=== PATIENT | female | born 1975 | race Hispanic/Latino ===

== ENCOUNTER 2023-04-09 15:33 | Emergency (ER) | payer OTHER ==
[~2023-04-09] VITALS: Ht 157.5 cm; Wt 77.1 kg
[2023-04-09] MEDS ORDERED: MORPHINE 2 MG SYG ONE (17:06)
[2023-04-09] MEDS ORDERED: ONDANSETRON ODT 4MG TAB ONE (17:07)
[2023-04-09] MEDS ORDERED: MORPHINE 2 MG SYG IM ONE (17:30)
[2023-04-09] MEDS ORDERED: ONDANSETRON ODT 4MG TAB SL ONE (17:30)
[2023-04-09] MEDS ORDERED: MORPHINE 4 MG SYG ONE (18:06)
[2023-04-09] MEDS ORDERED: PROPOFOL 10 MG/ML 20ML VIAL IV ONE (18:09)
[2023-04-09] MEDS ORDERED: ACET-2079 PO (19:58)
[2023-04-09] MEDS ORDERED: IBUP-2077 PO (19:58)
[2023-04-09 20:37] VITALS: BP 146/79
== END 2023-04-09 20:37 | disposition home or self-care (01) ==
LOC: EDH 15:33
DX: S52.91XA Unspecified fracture of right forearm, initial encounter for closed fracture (principal); S52.691A Other fracture of lower end of right ulna, initial encounter for closed fracture; W18.39XA Other fall on same level, initial encounter; Y93.89 Activity, other specified; Y92.89 Other specified places as the place of occurrence of the external cause; Y99.8 Other external cause status
CPT/HCPCS: 25605; 99285; 73100; 96374; 96372; J2270 ×2; J2704

== ENCOUNTER 2023-05-17 16:25 | Inpatient (IN) | payer OTHER ==
[~2023-05-17] VITALS: Ht 157.5 cm; Wt 74.0 kg
[~2023-05-17 16:25] MED LIST: ACET-2079 PO; IBUP-2077 PO
[2023-05-17] MEDS ORDERED: KETOROLAC 60 MG VIAL (30MG/ML) IM ONE (17:30)
[2023-05-17] MEDS ORDERED: MORPHINE 2 MG SYG IVP ONE (19:30)
[2023-05-17] MEDS ORDERED: METOCLOPRAMIDE 10 MG/2 ML VIAL IVP ONE (19:30)
[2023-05-17] MEDS ORDERED: FAMOTIDINE 20MG VIAL IV ONE (19:30)
[2023-05-17] MEDS ORDERED: LACTATED RINGERS 1000ML 1,000 ML IV ONE (19:30)
[2023-05-17 19:58] LABS: BASOPHILS # (AUTO) 0.03 K/uL (0.00-0.20); BASOPHILS % (AUTO) 0.4 % (0.0-5.0); EOSINOPHILS # (AUTO) 0.13 K/uL (0.00-0.70); EOSINOPHILS % (AUTO) 1.8 % (0.0-8.0); HEMATOCRIT 33.2 % (36-48); IMMATURE GRANULOCYTE ABSOLUTE 0.02 K/uL (0-1); LYMPHOCYTES # (AUTO) 1.8 K/uL (1.0-4.8); LYMPHOCYTES % (AUTO) 24.8 % (21.0-51.0); MEAN CORPUSCULAR HEMOGLOBIN 27.8 pg (27.0-33.0); MEAN CORPUSCULAR HGB CONC 30.7 g/dL (32.0-36.0); MEAN CORPUSCULAR VOLUME 90.5 fL (79-99); MONOCYTES # (AUTO) 0.6 K/uL (0.1-1.0); MONOCYTES % (AUTO) 8.3 % (3.0-13.0); NEUTROPHILS # (AUTO) 4.6 K/uL (1.8-7.7); NEUTROPHILS % (AUTO) 64.4 % (40.0-77.0); PLATELET COUNT (AUTO) 236 K/uL (130-400); RED BLOOD CELL COUNT(AUTO) 3.67 MIL/uL (4.00-5.50); WHITE BLOOD COUNT (AUTO) 7.2 K/uL (4.8-10.8)
[2023-05-17 20:13] LABS: ALBUMIN 3.6 g/dL (3.5-5.0); BILIRUBIN,TOTAL 0.2 mg/dL (0.2-1.0); CREATININE 0.7 mg/dL (0.5-1.5); POTASSIUM 3.4 mmol/L (3.5-5.1); TOTAL PROTEIN, SERUM 7.4 g/dL (6.0-8.3)
[2023-05-17] MEDS ORDERED: ACETAMINOPHEN 325 MG TAB PO PRN (20:30)
[2023-05-17] MEDS ORDERED: MORPHINE 4 MG SYG IV PRN (20:30)
[2023-05-17] MEDS ORDERED: ONDANSETRON 4MG INJ IV PRN (20:30)
[2023-05-17] MEDS ORDERED: MORPHINE 2 MG SYG IV PRN (20:30)
[2023-05-17] MEDS: FAMOTIDINE 20MG VIAL IV SCH (21:00)
[2023-05-17] MEDS: LACTATED RINGERS 1000ML 1,000 ML IV SCH ×2 (21:00→22:26)
[2023-05-17 22:00] VITALS: BP 140/81; PULSE 66; RESP 19; O2SAT 96
[2023-05-18] VITALS (7 sets, daily range): BP systolic 102–135; BP diastolic 62–79; PULSE 69–81; RESP 16–20; O2SAT 98
[2023-05-18 00:06] LABS: SARS-CoV-2, RNA, NAAT NEGATIVE SARS CoV-2 (NEGATIVE)
[2023-05-18 05:06] LABS: BASOPHILS # (AUTO) 0.02 K/uL (0.00-0.20); BASOPHILS % (AUTO) 0.3 % (0.0-5.0); EOSINOPHILS # (AUTO) 0.11 K/uL (0.00-0.70); EOSINOPHILS % (AUTO) 1.9 % (0.0-8.0); HEMATOCRIT 29.1 % (36-48); IMMATURE GRANULOCYTE ABSOLUTE 0.02 K/uL (0-1); LYMPHOCYTES # (AUTO) 1.8 K/uL (1.0-4.8); LYMPHOCYTES % (AUTO) 30.8 % (21.0-51.0); MEAN CORPUSCULAR HEMOGLOBIN 28.3 pg (27.0-33.0); MEAN CORPUSCULAR VOLUME 88.4 fL (79-99); MONOCYTES # (AUTO) 0.5 K/uL (0.1-1.0); NEUTROPHILS # (AUTO) 3.4 K/uL (1.8-7.7); NEUTROPHILS % (AUTO) 58.7 % (40.0-77.0); PLATELET COUNT (AUTO) 198 K/uL (130-400); RED BLOOD CELL COUNT(AUTO) 3.29 MIL/uL (4.00-5.50); RED CELL DISTRIBUTION WIDTH 14.9 % (11.0-15.5); WHITE BLOOD COUNT (AUTO) 5.9 K/uL (4.8-10.8)
[2023-05-18 05:16] LABS: INR 0.93 (0.85-1.15); PROTHROMBIN TIME 10.5 SEC (9.6-11.6)
[2023-05-18 05:18] LABS: PARTIAL THROMBOPLASTIN TIME 29.1 SEC (26.3-35.5)
[2023-05-18 05:27] LABS: CREATININE 0.6 mg/dL (0.5-1.5); MAGNESIUM 1.8 mg/dL (1.80-2.40); PHOSPHORUS 2.9 mg/dL (2.5-4.9); POTASSIUM 3.3 mmol/L (3.5-5.1)
[2023-05-18] MEDS: FAMOTIDINE 20MG VIAL IV SCH ×2 (08:53→21:32)
[2023-05-18] MEDS ORDERED: MAGNESIUM 2GM PREMIX 50ML 50 ML IV PRN (09:00)
[2023-05-18] MEDS ORDERED: POTASSIUM CHLORIDE 20MEQ/100ML 100 ML IV PRN (09:00)
[2023-05-18] MEDS ORDERED: POTASSIUM CHLORIDE 10% ELIXIR 20 MEQ/15 ML UDCUP PO PRN (12:00)
[2023-05-18] MEDS: KCL 20 MEQ ERTAB PO PRN ×2 (12:23→18:12)
[2023-05-18] MEDS: LACTATED RINGERS 1000ML 1,000 ML IV SCH (23:41)
[2023-05-19] VITALS (9 sets, daily range): BP systolic 109–149; BP diastolic 70–95; PULSE 58–82; RESP 16–20; TEMP 98.1; O2SAT 99
[2023-05-19 05:27] LABS: BASOPHILS # (AUTO) 0.02 K/uL (0.00-0.20); BASOPHILS % (AUTO) 0.3 % (0.0-5.0); EOSINOPHILS # (AUTO) 0.12 K/uL (0.00-0.70); EOSINOPHILS % (AUTO) 1.9 % (0.0-8.0); HEMATOCRIT 32.4 % (36-48); IMMATURE GRANULOCYTE ABSOLUTE 0.02 K/uL (0-1); LYMPHOCYTES # (AUTO) 1.8 K/uL (1.0-4.8); LYMPHOCYTES % (AUTO) 28.1 % (21.0-51.0); MEAN CORPUSCULAR HEMOGLOBIN 28.1 pg (27.0-33.0); MEAN CORPUSCULAR HGB CONC 31.2 g/dL (32.0-36.0); MEAN CORPUSCULAR VOLUME 90.3 fL (79-99); MONOCYTES # (AUTO) 0.5 K/uL (0.1-1.0); MONOCYTES % (AUTO) 8.5 % (3.0-13.0); NEUTROPHILS # (AUTO) 3.9 K/uL (1.8-7.7); NEUTROPHILS % (AUTO) 60.9 % (40.0-77.0); PLATELET COUNT (AUTO) 185 K/uL (130-400); RED BLOOD CELL COUNT(AUTO) 3.59 MIL/uL (4.00-5.50); RED CELL DISTRIBUTION WIDTH 14.7 % (11.0-15.5); WHITE BLOOD COUNT (AUTO) 6.4 K/uL (4.8-10.8)
[2023-05-19 05:42] LABS: BILIRUBIN,TOTAL 0.2 mg/dL (0.2-1.0); CREATININE 0.5 mg/dL (0.5-1.5); TOTAL PROTEIN, SERUM 6.4 g/dL (6.0-8.3)
[2023-05-19] MEDS: FAMOTIDINE 20MG VIAL IV SCH ×2 (08:47→20:51)
[2023-05-19] MEDS: ACETAMINOPHEN 325 MG TAB PO PRN (20:56)
[2023-05-20] VITALS (26 sets, daily range): BP systolic 114–168; BP diastolic 64–92; PULSE 55–79; RESP 10–19; O2SAT 100
[2023-05-20 05:17] LABS: BASOPHILS # (AUTO) 0.03 K/uL (0.00-0.20); BASOPHILS % (AUTO) 0.5 % (0.0-5.0); EOSINOPHILS # (AUTO) 0.13 K/uL (0.00-0.70); EOSINOPHILS % (AUTO) 2.1 % (0.0-8.0); HEMATOCRIT 34.8 % (36-48); IMMATURE GRANULOCYTE ABSOLUTE 0.02 K/uL (0-1); LYMPHOCYTES % (AUTO) 31.6 % (21.0-51.0); MEAN CORPUSCULAR HEMOGLOBIN 28.2 pg (27.0-33.0); MEAN CORPUSCULAR HGB CONC 31.9 g/dL (32.0-36.0); MEAN CORPUSCULAR VOLUME 88.5 fL (79-99); MONOCYTES # (AUTO) 0.5 K/uL (0.1-1.0); MONOCYTES % (AUTO) 8.1 % (3.0-13.0); NEUTROPHILS # (AUTO) 3.6 K/uL (1.8-7.7); NEUTROPHILS % (AUTO) 57.4 % (40.0-77.0); PLATELET COUNT (AUTO) 213 K/uL (130-400); RED BLOOD CELL COUNT(AUTO) 3.93 MIL/uL (4.00-5.50); RED CELL DISTRIBUTION WIDTH 14.9 % (11.0-15.5); WHITE BLOOD COUNT (AUTO) 6.3 K/uL (4.8-10.8)
[2023-05-20 05:33] LABS: CREATININE 0.6 mg/dL (0.5-1.5); POTASSIUM 4.3 mmol/L (3.5-5.1)
[2023-05-20] MEDS: FAMOTIDINE 20MG VIAL IV SCH ×2 (09:00→19:49)
[2023-05-20] MEDS ORDERED: LIDOCAINE PF 100MG/5ML (2%) SYRINGE 5ML ONE (12:36)
[2023-05-20] MEDS ORDERED: PROPOFOL 10 MG/ML 20ML VIAL IV ONE (12:37)
[2023-05-20] MEDS ORDERED: ROCURONIUM 10MG/1ML SYR 10 MG/ML ML ONE (12:37)
[2023-05-20] MEDS ORDERED: MIDAZOLAM HCL 1 MG/ML 2ML VIAL ONE (12:37)
[2023-05-20] MEDS ORDERED: FENTANYL CITRATE PF 50 MCG/1 ML 2ML VIAL ONE ×2 (12:38→14:37)
[2023-05-20] MEDS ORDERED: CEFAZOLIN SODIUM 2 GM VIAL IVPB ONE (13:55)
[2023-05-20] MEDS ORDERED: KETOROLAC 30MG VIAL (30MG/ML) ONE (14:12)
[2023-05-20] MEDS ORDERED: MEPERIDINE-PF 25 MG/ML SYG ONE ×2 (15:12→15:17)
[2023-05-20] MEDS: CEFAZOLIN SODIUM 1 GM VIAL IVPB SCH (21:59)
[2023-05-21] VITALS: BP 107/69; PULSE 65; RESP 18
[2023-05-21 04:00] VITALS: BP 106/69; PULSE 71; RESP 18
[2023-05-21] MEDS: CEFAZOLIN SODIUM 1 GM VIAL IVPB SCH ×2 (06:01→14:00)
[2023-05-21 06:21] LABS: BASOPHILS # (AUTO) 0.01 K/uL (0.00-0.20); BASOPHILS % (AUTO) 0.1 % (0.0-5.0); HEMATOCRIT 32.3 % (36-48); IMMATURE GRANULOCYTE ABSOLUTE 0.07 K/uL (0-1); LYMPHOCYTES # (AUTO) 0.8 K/uL (1.0-4.8); LYMPHOCYTES % (AUTO) 6.2 % (21.0-51.0); MEAN CORPUSCULAR HEMOGLOBIN 28.2 pg (27.0-33.0); MEAN CORPUSCULAR HGB CONC 32.2 g/dL (32.0-36.0); MEAN CORPUSCULAR VOLUME 87.5 fL (79-99); MONOCYTES # (AUTO) 0.7 K/uL (0.1-1.0); NEUTROPHILS # (AUTO) 10.7 K/uL (1.8-7.7); NEUTROPHILS % (AUTO) 87.1 % (40.0-77.0); PLATELET COUNT (AUTO) 226 K/uL (130-400); RED BLOOD CELL COUNT(AUTO) 3.69 MIL/uL (4.00-5.50); RED CELL DISTRIBUTION WIDTH 14.6 % (11.0-15.5); WHITE BLOOD COUNT (AUTO) 12.3 K/uL (4.8-10.8)
[2023-05-21 06:35] LABS: ALBUMIN 2.9 g/dL (3.5-5.0); BILIRUBIN,TOTAL 0.3 mg/dL (0.2-1.0); CREATININE 0.5 mg/dL (0.5-1.5); POTASSIUM 3.7 mmol/L (3.5-5.1); TOTAL PROTEIN, SERUM 6.4 g/dL (6.0-8.3)
[2023-05-21 08:00] VITALS: BP 106/67; PULSE 64; RESP 18; O2SAT 64
[2023-05-21] MEDS: FAMOTIDINE 20MG VIAL IV SCH (09:09)
[2023-05-21 12:00] VITALS: BP 115/67; PULSE 59; RESP 19
[2023-05-21] MEDS: KCL 20 MEQ ERTAB PO PRN (12:23)
[2023-05-21] MEDS ORDERED: IBUP-2077 PO (12:31)
[2023-05-21] MEDS ORDERED: ACET-2079 PO (12:31)
[2023-05-21 16:00] VITALS: BP 115/69; PULSE 77; RESP 18
[2023-05-21] MEDS: ACETAMINOPHEN 325 MG TAB PO PRN (17:59)
== END 2023-05-21 18:15 | disposition home or self-care (01) | DRG 512 ==
LOC: EDH 16:25 → EDHIP 16:26 → 3AH 21:49
PROVIDERS: ADMIT Internal Medicine; ATTEND Internal Medicine
PROC: 0PSH04Z Reposition Right Radius with Internal Fixation Device, Open Approach (ICD-10-PCS; principal; 2023-05-20 13:37)
DX: S52.511A Displaced fracture of right radial styloid process, initial encounter for closed fracture (principal); S52.611A Displaced fracture of right ulna styloid process, initial encounter for closed fracture; W18.39XA Other fall on same level, initial encounter; E87.6 Hypokalemia; Z20.822 Contact with and (suspected) exposure to COVID-19; Y93.89 Activity, other specified; Y92.89 Other specified places as the place of occurrence of the external cause; Y99.8 Other external cause status; Z91.81 History of falling
CPT/HCPCS: 36415; 73110; 80048; 80053; 82550; 83735; 84100; 84703; 85025; 85610; 85730; 86850; 86900; 86901; 87635; 93005; G0378; J0690; J1885; J2001; J2175; J2250; J2270; J2405; J2704; J2765; J3010; J3475; J3490; J7120; A4216; A4222; A4223; A4600